=== PATIENT | male | born 1965 | race Caucasian/White ===

== ENCOUNTER 2017-01-12 11:35 | Observation (INO) | payer OTHER ==
[~2017-01-12] VITALS: Ht 185.4 cm; Wt 90.5 kg
[2017-01-12] MEDS ORDERED: IV NORMAL SALINE 1,000ML 1,000 ML IV SCH (11:40)
[2017-01-12] MEDS ORDERED: 0.9 % SODIUM CHLORIDE 10 ML DISP.SYRIN. IV PRN (11:45)
[2017-01-12] MEDS ORDERED: NITROGLYCERIN SUBLINGUAL 0.4 MG BOTTLE OF 25. SL PRN (11:45)
[2017-01-12 12:00] LABS: BASO % 0 % (0-3); EOS # 0.1 x10^3/uL (0.0-0.7); EOS % 3 % (0-3); HEMATOCRIT 41.4 % (39.0-53.0); HEMOGLOBIN 14.4 g/dL (13.0-17.5); LYMPH # 1.2 x10^3/uL (1.0-4.8); LYMPH % 22 % (24-48); MEAN CORPUSCULAR HEMOGLOBIN 32 pg (25-35); MEAN CORPUSCULAR HGB CONC 35 g/dL (31-37); MEAN CORPUSCULAR VOLUME 91 fL (79-100); MONO # 0.5 x10^3/uL (0.0-1.1); MONO % 8 % (0-9); NEUT # 3.7 x10^3uL (1.8-7.7); NEUT % 67 % (31-73); PLATELET COUNT 163 x10^3/uL (140-400); RED BLOOD COUNT 4.57 x10^6/uL (4.30-5.70); RED CELL DISTRIBUTION WIDTH 12.6 % (11.5-14.5); WHITE BLOOD COUNT 5.5 x10^3/uL (4.0-11.0)
--- NOTE | 2017-01-12 12:09 | RAD ---
CHEST PA LATERAL Technique: PA and lateral views of the chest were obtained. Clinical History: chest pain Comparison: None. Findings: The heart and pulmonary vasculature appear within normal limits. 7 mm nodule or granuloma identified in the right upper lobe of the lung.. The pleural margins are clear. Impression: 1. No acute chest process is seen. 2. Probable 7 mm nodule or granuloma identified in the right upper lobe of the lung. Follow-up nonemergent CT chest can be considered.
[2017-01-12] MEDS ORDERED: LORazepam 2 MG/ML VIAL IV ONE (12:15)
[2017-01-12] MEDS: HYDROmorphone PF 1 MG/ML DISP.SYRIN IV/SQ PRN ×2 (12:17→13:40)
--- NOTE | 2017-01-12 12:25 | PHYS DOC ---
Past History Past Medical History: Anxiety, High Cholesterol, Hyperthyroid Additional Past Surgical Histo: prior coronary catheterization in 2002 Smoking: Non-smoker Drug Use: None Adult General Chief Complaint Chief Complaint: CHEST PAIN HPI HPI Patient is a pleasant 51-year-old male with a history of question hypertension and hypercholesterolemia who is actually undergone catheterization in 2002 for the presentation of chest pain at [facility]. Although he did not have an AR at the time today's symptoms are markedly different. Today's chest pain began about 3 hours prior to arrival while at work. 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 He does not do any heavy lifting or exercise. He admits to chest pain is a pressure underneath his left chest with some radiation to the left arm. It is episodic and now completely resolved. Patient was mildly anxious with the symptoms but denied any vomiting or diarrhea or lightheadedness. He has some slight nausea with the symptoms but no shortness of breath. He denies any travel outside the country, he denies any other PE risk factors, denies any night sweats, weight loss fevers chills or URI symptoms. He does admit that he is gaining weight recently. He also admits that he does not exercise much. Review of Systems Review of Systems Constitutional: Denies fever or chills [] Eyes: Denies change in visual acuity, redness, or eye pain [] HENT: Denies nasal congestion or sore throat [] Respiratory: Denies cough or shortness of breath [] Cardiovascular: No additional information not addressed in HPI [] GI: Denies abdominal pain, vomiting bloody stools or diarrhea. But he has had some nausea. : Denies dysuria or hematuria [] Musculoskeletal: Denies back pain or joint pain [] Integument: Denies rash or skin lesions [] Neurologic: Denies headache, focal weakness or sensory changes he has felt little lightheaded and dizzy with the symptoms periodically.[] Endocrine: Denies polyuria or polydipsia [] Current Medications Current Medications Current Medications Medications (Trade) Dose Ordered Sig/Cleo Start Time Stop Time Status Last Admin Dose Admin Hydromorphone HCl (Dilaudid) 1 mg PRN Q15MIN PRN 01/12/17 11:45 01/13/17 11:44 Lorazepam (Ativan) 1 mg 1X ONCE 01/12/17 12:15 01/12/17 12:16 DC Nitroglycerin (Nitrostat) 0.4 mg PRN Q5MIN PRN 01/12/17 11:45 01/13/17 11:44 Sodium Chloride (Normal Saline Flush) 10 ml QSHIFT PRN 01/12/17 11:45 Allergies Allergies Allergies Coded Allergies Type Severity Reaction Last Updated Verified No Known Drug Allergies 01/12/17 No Physical Exam Physical Exam Patient's vital signs recorded on the chart demonstrate hypertension Constitutional: Well developed, well nourished, no acute distress, non-toxic appearance. He is mildly anxious but nondiaphoretic[] HENT: Normocephalic, atraumatic, bilateral external ears normal, oropharynx moist, no oral exudates, nose normal. [] Eyes: PERRLA, EOMI, conjunctiva normal, no discharge. [] Neck: Normal range of motion, no tenderness, supple, no stridor. [] Cardiovascular:Heart rate regular rhythm, no murmur no chest wall tenderness to palpation Lungs & Thorax: Bilateral breath sounds clear to auscultation no wheezes rhonchi rales or crackles Abdomen: Bowel sounds normal, soft, no tenderness, no masses, no pulsatile masses. [] Skin: Warm, dry, no erythema, no rash. [] Extremities: No tenderness, no cyanosis, no clubbing, ROM intact, no edema. No Homans sign [] Neurologic: Alert and oriented X 3, normal motor function, normal sensory function, no focal deficits noted. [] Psychologic: Patient has normal judgment mildly anxious but appropriate. [] Current Patient Data Lab Results Laboratory Tests Test 01/12/17 11:45 01/12/17 11:50 White Blood Count 5.5 x10^3/uL (4.0-11.0) Red Blood Count 4.57 x10^6/uL (4.30-5.70) Hemoglobin 14.4 g/dL (13.0-17.5) Hematocrit 41.4 % (39.0-53.0) Mean Corpuscular Volume 91 fL (79-100) Mean Corpuscular Hemoglobin 32 pg (25-35) Mean Corpuscular Hemoglobin Concent 35 g/dL (31-37) Red Cell Distribution Width 12.6 % (11.5-14.5) Platelet Count 163 x10^3/uL (140-400) Neutrophils (%) (Auto) 67 % (31-73) Lymphocytes (%) (Auto) 22 % (24-48) L Monocytes (%) (Auto) 8 % (0-9) Eosinophils (%) (Auto) 3 % (0-3) Basophils (%) (Auto) 0 % (0-3) Neutrophils # (Auto) 3.7 x10^3uL (1.8-7.7) Lymphocytes # (Auto) 1.2 x10^3/uL (1.0-4.8) Monocytes # (Auto) 0.5 x10^3/uL (0.0-1.1) Eosinophils # (Auto) 0.1 x10^3/uL (0.0-0.7) Basophils # (Auto) 0.0 x10^3/uL (0.0-0.2) Sodium Level 137 mmol/L (136-145) Potassium Level 4.1 mmol/L (3.5-5.1) Chloride Level 102 mmol/L (98-107) Carbon Dioxide Level 27 mmol/L (21-32) Anion Gap 8 (6-14) Blood Urea Nitrogen 16 mg/dL (8-26) Creatinine 0.9 mg/dL (0.7-1.3) Estimated GFR (Cockcroft-Gault) 89.7 BUN/Creatinine Ratio 18 (6-20) Glucose Level 108 mg/dL (70-99) H Calcium Level 9.0 mg/dL (8.5-10.1) Magnesium Level 2.0 mg/dL (1.8-2.4) Total Bilirubin 0.5 mg/dL (0.2-1.0) Aspartate Amino Transferase (AST) 18 U/L (15-37) Alanine Aminotransferase (ALT) 35 U/L (16-63) Alkaline Phosphatase 55 U/L (46-116) Creatine Kinase 91 U/L (39-308) Creatine Kinase MB (Mass) 0.5 ng/mL (0.0-3.6) Creatine Kinase MB Relative Index 0.5 % (0-4) Troponin I Quantitative < 0.017 ng/mL (0-0.055) UR-Rds-Z-Type Natriuretic Peptide 33 pg/mL (0-124) Total Protein 7.5 g/dL (6.4-8.2) Albumin 4.1 g/dL (3.4-5.0) Albumin/Globulin Ratio 1.2 (1.0-1.7) Lipase 151 U/L (73-393) Urine Collection Type Unknown Urine Color Yellow Urine Clarity Clear Urine pH 7.0 Urine Specific [place] 1.015 Urine Protein Neg (NEG-TRACE) Urine Glucose (UA) Neg mg/dL (NEG) Urine Ketones (Stick) Neg mg/dL (NEG) Urine Blood Neg (NEG) Urine Nitrite Neg (NEG) Urine Bilirubin Neg (NEG) Urine Urobilinogen Dipstick 0.2 mg/dL (0.2 mg/dL) Urine Leukocyte Esterase Neg (NEG) Urine RBC 0 /HPF (0-2) Urine WBC 0 /HPF (0-4) Urine Squamous Epithelial Cells None /LPF Urine Bacteria 0 /HPF (0-FEW) Urine Opiates Screen Neg (NEG) Urine Methadone Screen Neg (NEG) Urine Barbiturates Neg (NEG) Urine Phencyclidine Screen Neg (NEG) Urine Amphetamine/Methamphetamine Neg (NEG) Urine Benzodiazepines Screen Neg (NEG) Urine Cocaine Screen Neg (NEG) Urine Cannabinoids Screen Neg (NEG) Urine Ethyl Alcohol Neg (NEG) Laboratory Tests Test 01/12/17 11:45 White Blood Count 5.5 x10^3/uL (4.0-11.0) Red Blood Count 4.57 x10^6/uL (4.30-5.70) Hemoglobin 14.4 g/dL (13.0-17.5) Hematocrit 41.4 % (39.0-53.0) Mean Corpuscular Volume 91 fL (79-100) Mean Corpuscular Hemoglobin 32 pg (25-35) Mean Corpuscular Hemoglobin Concent 35 g/dL (31-37) Red Cell Distribution Width 12.6 % (11.5-14.5) Platelet Count 163 x10^3/uL (140-400) Neutrophils (%) (Auto) 67 % (31-73) Lymphocytes (%) (Auto) 22 % (24-48) L Monocytes (%) (Auto) 8 % (0-9) Eosinophils (%) (Auto) 3 % (0-3) Basophils (%) (Auto) 0 % (0-3) Neutrophils # (Auto) 3.7 x10^3uL (1.8-7.7) Lymphocytes # (Auto) 1.2 x10^3/uL (1.0-4.8) Monocytes # (Auto) 0.5 x10^3/uL (0.0-1.1) Eosinophils # (Auto) 0.1 x10^3/uL (0.0-0.7) Basophils # (Auto) 0.0 x10^3/uL (0.0-0.2) EKG EKG []EKG demonstrates at 11:30 AM 01/12/2017 heart rate of 82 normal sinus rhythm with a significant left bundle-branch block and left axis deviation. MD interval is 184 which is normal QRS width is 138 which is consistent with a left bundle mass block and not new to this patient patient's QTc is 456 which is normal. EKG read by Dr. Rahman there is no evidence of acute AR based on Ab's criteria Radiology/Procedures Radiology/Procedures [] Course & Med Decision Making Course & Med Decision Making Pertinent Labs and Imaging studies reviewed. (See chart for details) Differential diagnosis for chest pain: Pericarditis, myocarditis, endocarditis, pneumothorax, pneumonia, aortic dissection, esophageal spasm, esophagitis, peptic ulcer disease, acute coronary syndrome, mediastinitis, Boerhaave syndrome , musculoskeletal chest wall pain, costochondritis, intercostal strain, rib fracture, pulmonary contusion, pneumonitis, pleural effusion, pericardial effusion, pericardial tamponode, and pleurisy. SGARBOSSA Criteria The three ECG criteria with an independent value in the diagnosis of acute infarction and the score for each were: ST segment elevation of 1 mm or more that is in the same direction (concordant) as the QRS complex in any lead `` score 5. ST segment depression of 1 mm or more in any lead from V1 to V3 `` score 3. ST segment elevation of 5 mm or more that is discordant with the QRS complex (ie , associated with a QS or rS complex) `` score 2. Therefore, a ratio (in absolute units) in any relevant lead of the amplitude of the ST elevation to the S wave amplitude exceeding 0.25 has been proposed as having greater accuracy than the original Sgarbossa criterion []BASed on (spot on prior EKGs according to patient's history patient is not having a STEMI at this time Patient is low to moderate risk based on his history and presentation. I have offered him admission at this time despite knowing that troponin is likely going to be negative is only 2-3 hours of symptoms prior to arrival.Differential diagnosis for chest pain: Pericarditis, myocarditis, endocarditis, pneumothorax, pneumonia, aortic dissection, esophageal spasm, esophagitis, peptic ulcer disease, acute coronary syndrome, mediastinitis, Boerhaave syndrome, musculoskeletal chest wall pain, costochondritis, intercostal strain, rib fracture, pulmonary contusion, pneumonitis, pleural effusion, pericardial effusion, pericardial tamponode, and pleurisy. Was considered upon arrival initial EKG is not concerning for STEMI at this time [employer] Professor note: Dr. Ngo [employer] Professor called at of the service internal medicine service called up initially at 12:20 pM Consult called back at Discussed the case I presented and they agreed with admission. Time of acceptance 12:23 PM BASED and patient's heart score is listed below hydrate him up for which is moderate which require him to have a and inpatient observation workup with cardiology evaluation. History: Highly suspicious 2 points moderately suspicious 1. slightly suspicious 0 point EKG: ST segment depression 2. nonspecific repolarization disturbance 1. normal 0 point Age: Greater than 65 2 points, 65-45 1., less than 45 years old 0 points Risk factors:> 3 risk factors 2 points, 1-2 risk factors one point, no risk factors 0 point Troponin: > 2 times normal 2 points, 1-2 times normal 1., normal limits 0 point Total score: Score % pts MACE/n MACE Policy 0-3 32% 1.9% 0.05% Discharge 4-6 51% 413/[id number] 13% 1.3% Observation Risk management 7-10 17% 518/[id number] 50% 2.8% Observation Treatment, CAG Dragon Disclaimer Dragon Disclaimer This chart was dictated in whole or in part using Voice Recognition software in a busy, high-work load, and often noisy Emergency Department environment. It may contain unintended and wholly unrecognized errors or omissions. Departure Departure: Impression: Primary Impression: Chest pain Disposition: ADMITTED INPATIENT Admitting Physician: Key Ngo Condition: GUARDED Referrals: PCP,SHAMA (PCP) RADHA RAHMAN MD Jan 12, 2017 12:25
[2017-01-12 12:27] LABS: ALBUMIN 4.1 g/dL (3.4-5.0); ALBUMIN/GLOBULIN RATIO 1.2 (1.0-1.7); CREATININE 0.9 mg/dL (0.7-1.3); GFR 89.7; POTASSIUM 4.1 mmol/L (3.5-5.1); TOTAL BILIRUBIN 0.5 mg/dL (0.2-1.0); TOTAL PROTEIN 7.5 g/dL (6.4-8.2)
[2017-01-12 12:29] LABS: AMPHETAMINE/METHAMPHETAMINE NEG (NEG); BARBITURATES NEG (NEG); BENZODIAZEPINES NEG (NEG); CANNABINOIDS NEG (NEG); COCAINE NEG (NEG); METHADONE NEG (NEG); OPIATES NEG (NEG); PHENCYCLIDINE NEG (NEG)
[2017-01-12 12:39] LABS: BACTERIA,URINE 0 /HPF (0-FEW); BILIRUBIN,URINE NEG (NEG); CLARITY,URINE CLEAR; COLOR,URINE YELLOW; GLUCOSE,URINE NEG (NEG); NITRITE,URINE NEG (NEG); RBC,URINE 0 /HPF (0-2); UROBILINOGEN,URINE 0.2 mg/dL (0.2 mg/dL); WBC,URINE 0 /HPF (0-4)
--- NOTE | 2017-01-12 12:43 | EKG ---
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
[2017-01-12 13:36] VITALS: BP 125/73
[2017-01-12] MEDS ORDERED: LISI10TA2 PO (14:31)
[2017-01-12] MEDS ORDERED: TEMA15CA6 PO (14:31)
[2017-01-12] MEDS ORDERED: ESOM40CA PO (14:31)
[2017-01-12 14:38] VITALS: BP 125/73
[2017-01-12] MEDS ORDERED: ALFU10TA23 PO (15:55)
[2017-01-12 18:29] VITALS: BP 137/78
[2017-01-12] MEDS ORDERED: TEMAZEPAM 15 MG CAPSULE PO SCH (21:00)
--- NOTE | 2017-01-12 22:18 | HP ---
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 He basically was sitting, does not do heavy lifting or exercise. He complained of chest pressure under his left sided chest with some radiation to his left arm. It is episodic comes and goes. Denied any nausea or vomiting. Denied any diaphoresis or shortness of breath. By the time, he came to the Emergency Room, he was given 2 nitroglycerin and 1 aspirin and his pain has subsided. By the time I saw him, he was chest pain free. PAST MEDICAL HISTORY: Significant for hypertension, hypercholesterolemia, benign prostatic hypertrophy and anxiety as well as gastroesophageal reflux disease. He is also known to have gastric ulcers before. PAST SURGICAL HISTORY: Significant for left heart catheterization in 2002, had back surgery in 2007 and esophagogastroduodenoscopy in 2010. ALLERGIES: He has no known drug allergies. MEDICATIONS: He is currently on following medications: He is on Nexium 40 mg once a day, lisinopril 10 mg once a day, and temazepam 15 mg at bedtime. FAMILY HISTORY: He has one brother and one sister younger, both healthy. His father is alive at the age of 73, is known to have diabetes and hypertension. He does not keep in touch with his mother, does not know any medical problems. SOCIAL HISTORY: He is , has 1 son, quit smoking in 2002, he smokes about 1 pack a day for 25 years. Prior to that, he drinks alcohol, mostly beer twice a week. Does not use any drugs. 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 REVIEW OF SYSTEMS: The patient denied any blurring of vision, cataract, glaucoma or macular degeneration. Denied any earache, tinnitus or sensorineural deafness. Denied any nosebleeds, stuffy nose or postnasal drip. Denied any sore throat, sore tongue, toothache, hoarseness of voice or difficulty swallowing. Denied any nausea, vomiting, diarrhea or constipation. Denied any hematemesis, melena or hematochezia. Denied any dysuria, frequency or hematuria. He did complain of chest pain, but denied any nausea or vomiting. Denied any diaphoresis. Denied any shortness of breath, denied any dizziness or lightheadedness. PHYSICAL EXAMINATION: GENERAL: On arrival to the Emergency Room, the patient looked well and was clearly in no apparent respiratory distress. No pallor, jaundice, cyanosis or thyromegaly. No jugular distension. No lower limb edema. VITAL SIGNS: His heart rate was 95, blood pressure 152/68, temperature was 98.2, respiratory rate was 18 and oxygen saturation was 100% on room air. HEAD, EYES, EARS, NOSE AND THROAT: Showed normocephalic, atraumatic. NECK: Supple. HEART: Showed normal first and second heart sounds. No gallop, rub or murmur. CHEST: Clear to auscultation. No crepitation or rhonchi. ABDOMEN: Distended, soft, nontender. NEUROLOGIC: He is awake, alert, responding appropriately. Cranial nerves intact. He moves extremities without difficulty, ambulates without assistance or assistive devices. LABORATORY DATA: While in the Emergency Room, he had lab work done, which included white cell count of 5500, hemoglobin 14, hematocrit 41, MCV 91 and platelet count of 163,000. The manual differential showed 67% polymorphs, 22% lymphocytes. His chemistry showed a serum sodium 137, potassium 4.1, chloride 102, bicarbonate 27, anion gap of 8, BUN 16, creatinine 0.9. Estimated GFR was 90 mL per minute. His glucose was 109. Calcium was 9, magnesium 2. Total bilirubin, AST, ALT, alkaline phosphatase were normal. His first set of cardiac enzymes showed troponin to be less than 0.017. Total protein 7.5, albumin was 4.1, lipase was 151. His urinalysis was essentially unremarkable and urine toxicology screen was negative. He has had a chest x-ray, which showed that the heart and pulmonary vasculature appeared within normal limits, 7 mm nodules or granuloma identified in the right upper lobe of the lung. The pleural margins are clear. He apparently had had an EKG, which showed that he has left bundle branch block that the finding is old. ASSESSMENT AND PLAN: The patient was admitted. We will do 2 more sets of cardiac enzyme, consult the Cardiology team and check his fasting lipid profile and decide on further management accordingly. We will continue with all his medication. LIVIA BRAN MD DR: Dinorah JOB#: [id number] / [id number]
[2017-01-12 23:17] VITALS: BP 134/71
[2017-01-13 05:32] VITALS: BP 138/77
[2017-01-13 06:36] LABS: BASO % 0 % (0-3); CALCIUM 8.7 mg/dL (8.5-10.1); CREATININE 0.9 mg/dL (0.7-1.3); EOS # 0.3 x10^3/uL (0.0-0.7); EOS % 4 % (0-3); HEMATOCRIT 41.4 % (39.0-53.0); HEMOGLOBIN 14.3 g/dL (13.0-17.5); LYMPH # 1.1 x10^3/uL (1.0-4.8); LYMPH % 18 % (24-48); MEAN CORPUSCULAR HEMOGLOBIN 31 pg (25-35); MEAN CORPUSCULAR HGB CONC 35 g/dL (31-37); MEAN CORPUSCULAR VOLUME 91 fL (79-100); MONO # 0.5 x10^3/uL (0.0-1.1); MONO % 7 % (0-9); NEUT # 4.3 x10^3uL (1.8-7.7); NEUT % 70 % (31-73); PLATELET COUNT 156 x10^3/uL (140-400); RED BLOOD COUNT 4.56 x10^6/uL (4.30-5.70); RED CELL DISTRIBUTION WIDTH 12.6 % (11.5-14.5); WHITE BLOOD COUNT 6.1 x10^3/uL (4.0-11.0)
[2017-01-13 06:37] LABS: GFR 89.7; POTASSIUM 4.4 mmol/L (3.5-5.1)
[2017-01-13] MEDS ORDERED: PANTOPRAZOLE 40 MG TABLET. PO SCH (07:30)
[2017-01-13] MEDS ORDERED: LISINOPRIL 10 MG TABLET PO SCH (09:00)
[2017-01-13 11:07] VITALS: BP 129/78
[2017-01-13] MEDS ORDERED: NITR0.4T SL (12:30)
[2017-01-13] MEDS ORDERED: ASPI-630 PO (12:31)
--- NOTE | 2017-01-13 13:24 | PDOC2 ---
KAMILA HAIRSTON TELEGRAPH REPEATER TECHNICIAN 01/13/17 1324: CONSULT Date of Admission DATE: 01/13/17 TIME: 13:20 Reason for Consult: Chest pain Referring Physician: Dr Ngo Problem List Problems Medical Problems: (1) Chest pain Status: Acute History of Present Illness This is a pleasant 51-year-old male who presented to the emergency room with chief complaint of chest discomfort. HE has a past medical history significant for hypertension, hyperlipidemia, gastric ulcer and gastroesophageal reflux disease. Yesterday while at work he began having pressure sensations in his chest at 1st they are very short lasting and did not seem to be triggered by any type of activity. The pain radiated at times down his left arm but he denies any associated shortness of breath, nausea, vomiting or diaphoresis. He had and upset patient and began to feel more stress and felt like this caused the pain to become more persistent and he became lightheaded. He had to sit down and felt chest pressure so they called the ambulance to bring him to the ER. In the ER he was given 2 nitro and 1 aspirin and the pain resolved. He has not had any further. He denies any recent change in function or Progressive dyspnea/ palpitations. In 2002 he had an episode of chest pain that required an ambulance to [facility] where he underwent a cardiac catheterization. HE did not require any intervention but does not remember the exact results of the test. He does exercise on inconsistent basis does not noticed any chest discomfort or changes. Past medical history significant for hypertension, hyperlipidemia, benign prostatic hypertrophy, as well as reflux disease and gastric ulcer. Past surgical history significant for heart left heart catheterization in 2002 that did not require intervention and back surgery in 2007 allergies he has no known drug allergies medications Nexium 40 mg daily lisinopril 10 mg daily and temazepam 15 mg at bedtime family history his father's medical history is significant for diabetes and hypertension he is living at age 73. He has 1 brother with a left bundle- branch block social history -he is and works at [employer]. He quit smoking in 2002, prior to that he smoked 1 pack of cigarettes a day for 25 years. He drinks alcohol occasionally and denies any drug use. Review of systems review of 10 organ systems is negative except for as in HPI physical examination GENERAL: On arrival to the Emergency Room, the patient looked well and was clearly in no apparent respiratory distress. No pallor, jaundice, cyanosis or thyromegaly. No jugular distension. No lower limb edema. HEAD, EYES, EARS, NOSE AND THROAT: Showed normocephalic, atraumatic. NECK: Supple. HEART: Showed normal first and second heart sounds. No gallop, rub or murmur. CHEST: Clear to auscultation. No crepitation or rhonchi. ABDOMEN: Distended, soft, nontender. NEUROLOGIC: He is awake, alert, responding appropriately. Cranial nerves intact. He moves extremities without difficulty, ambulates without assistance or assistive devices. Laboratory data -he has had 3 sets of negative cardiac enzymes. EKG shows sinus rhythm with left bundle-branch block, he reports that this is an old finding chest x-ray showed normal heart and pulmonary vascular 7 mm nodule or granuloma identified in the right upper lobe of the lung impression and plan Chest pain CO has been ruled out. His EKG shows left bundle which is his baseline. We will plan to discharge home and do an outpatient echo and nuclear stress test. Abnormal EKG Hypertension continue lisinopril gastroesophageal reflux disease with prior gastric ulcer -if his stress test is negative would plan to send to GI for follow-up. Current Medications Current Medications Lorazepam (Ativan) 1 mg 1X ONCE IV Last administered on 01/12/17 12:16; Start 01/12/17 at 12:15; Stop 01/12/17 at 12:16; Status DC Nitroglycerin (Nitrostat) 0.4 mg PRN Q5MIN PRN SL CP RATING > 1/10 Last administered on 01/12/17 12:22; Start 01/12/17 at 11:45; Stop 01/13/17 at 11:44 ; Status DC Hydromorphone HCl (Dilaudid) 1 mg PRN Q15MIN PRN IV/SQ PAIN GREATER THAN 3/10 Last administered on 01/12/17 13:40; Start 01/12/17 at 11:45; Stop 01/13/17 at 11:44; Status DC Sodium Chloride 1,000 ml @ 1,000 mls/hr Q1H IV Last administered on 01/12/17 12:20; Start 01/12/17 at 11:40; Stop 01/12/17 at 12:39; Status DC Sodium Chloride (Normal Saline Flush) 10 ml QSHIFT PRN IV AFTER MEDS AND BLOOD DRAWS Last administered on 01/12/17 12:23; Start 01/12/17 at 11:45; Stop at 12:45; Status DC Lisinopril (Prinivil) 10 mg DAILY PO Last administered on 01/13/17 07:39; Start 01/13/17 at 09:00; Stop 01/13/17 at 12:45; Status DC Temazepam (Restoril) 15 mg QHS PO Last administered on 01/12/17 20:31; Start 01/12/17 at 21:00; Stop 01/13/17 at 12:45; Status DC Pantoprazole Sodium (Protonix) 40 mg DAILYAC PO Last administered on 01/13/17 07:39; Start 01/13/17 at 07:30; Stop 01/13/17 at 12:45; Status DC Active Scripts Active Aspirin 81 Mg Tab.chew 81 Mg PO DAILY Nitrostat (Nitroglycerin) 0.4 Mg Tab.subl 1 Tab SL UD Reported Uroxatral (Alfuzosin HCl) 10 Mg Tab.er.24h 10 Mg PO DAILY LAST DOSE GIVEN: DATE: TODAY TIME: AM NEXT DOSE DUE: DATE: TOMORROW TIME: AM Lisinopril 10 Mg Tablet 1 Tab PO DAILY LAST DOSE GIVEN: DATE: TODAY TIME: AM NEXT DOSE DUE: DATE: TOMORROW TIME: AM Nexium Capsule (Esomeprazole Magnesium) 40 Mg Capsule.dr 40 Mg PO DAILYAC LAST DOSE GIVEN: DATE: TODAY TIME: BEFORE BREAKFAST NEXT DOSE DUE: DATE: TOMORROW TIME: BEFORE BREAKFAST Restoril (Temazepam) 15 Mg Capsule 1 Cap PO QHS NEXT DOSE DUE: DATE: RESUME TONITE TIME: WHEN NEEDED Allergies: Coded Allergies: No Known Drug Allergies (Unverified , 01/12/17) VITALS Vital Signs Date Time Temp Pulse Resp B/P (MAP) Pulse Ox O2 Delivery O2 Flow Rate FiO2 01/13/17 11:07 97.9 76 14 129/78 (95) 96 Room Air Labs Laboratory Tests Test 01/12/17 11:45 01/12/17 11:50 01/12/17 13:30 01/12/17 18:15 White Blood Count 5.5 x10^3/uL (4.0-11.0) Red Blood Count 4.57 x10^6/uL (4.30-5.70) Hemoglobin 14.4 g/dL (13.0-17.5) Hematocrit 41.4 % (39.0-53.0) Mean Corpuscular Volume 91 fL (79-100) Mean Corpuscular Hemoglobin 32 pg (25-35) Mean Corpuscular Hemoglobin Concent 35 g/dL (31-37) Red Cell Distribution Width 12.6 % (11.5-14.5) Platelet Count 163 x10^3/uL (140-400) Neutrophils (%) (Auto) 67 % (31-73) Lymphocytes (%) (Auto) 22 % (24-48) Monocytes (%) (Auto) 8 % (0-9) Eosinophils (%) (Auto) 3 % (0-3) Basophils (%) (Auto) 0 % (0-3) Neutrophils # (Auto) 3.7 x10^3uL (1.8-7.7) Lymphocytes # (Auto) 1.2 x10^3/uL (1.0-4.8) Monocytes # (Auto) 0.5 x10^3/uL (0.0-1.1) Eosinophils # (Auto) 0.1 x10^3/uL (0.0-0.7) Basophils # (Auto) 0.0 x10^3/uL (0.0-0.2) Sodium Level 137 mmol/L (136-145) Potassium Level 4.1 mmol/L (3.5-5.1) Chloride Level 102 mmol/L (98-107) Carbon Dioxide Level 27 mmol/L (21-32) Anion Gap 8 (6-14) Blood Urea Nitrogen 16 mg/dL (8-26) Creatinine 0.9 mg/dL (0.7-1.3) Estimated GFR (Cockcroft-Gault) 89.7 BUN/Creatinine Ratio 18 (6-20) Glucose Level 108 mg/dL (70-99) Calcium Level 9.0 mg/dL (8.5-10.1) Magnesium Level 2.0 mg/dL (1.8-2.4) Total Bilirubin 0.5 mg/dL (0.2-1.0) Aspartate Amino Transf (AST/SGOT) 18 U/L (15-37) Alanine Aminotransferase (ALT/SGPT) 35 U/L (16-63) Alkaline Phosphatase 55 U/L (46-116) Creatine Kinase 91 U/L (39-308) Creatine Kinase MB (Mass) 0.5 ng/mL (0.0-3.6) Creatine Kinase MB Relative Index 0.5 % (0-4) Troponin I Quantitative < 0.017 ng/mL (0-0.055) < 0.017 ng/mL (0-0.055) UO-Fxa-A-Type Natriuretic Peptide 33 pg/mL (0-124) Total Protein 7.5 g/dL (6.4-8.2) Albumin 4.1 g/dL (3.4-5.0) Albumin/Globulin Ratio 1.2 (1.0-1.7) Lipase 151 U/L (73-393) Urine Collection Type Unknown Urine Color Yellow Urine Clarity Clear Urine pH 7.0 Urine Specific [place] 1.015 Urine Protein Neg (NEG-TRACE) Urine Glucose (UA) Neg mg/dL (NEG) Urine Ketones (Stick) Neg mg/dL (NEG) Urine Blood Neg (NEG) Urine Nitrite Neg (NEG) Urine Bilirubin Neg (NEG) Urine Urobilinogen Dipstick 0.2 mg/dL (0.2 mg/dL) Urine Leukocyte Esterase Neg (NEG) Urine RBC 0 /HPF (0-2) Urine WBC 0 /HPF (0-4) Urine Squamous Epithelial Cells None /LPF Urine Bacteria 0 /HPF (0-FEW) Urine Opiates Screen Neg (NEG) Urine Methadone Screen Neg (NEG) Urine Barbiturates Neg (NEG) Urine Phencyclidine Screen Neg (NEG) Urine Amphetamine/Methamphetamine Neg (NEG) Urine Benzodiazepines Screen Neg (NEG) Urine Cocaine Screen Neg (NEG) Urine Cannabinoids Screen Neg (NEG) Urine Ethyl Alcohol Neg (NEG) Nasal Screen MRSA (PCR) Negative (Negative) Test 01/12/17 23:40 01/13/17 05:41 Troponin I Quantitative < 0.017 ng/mL (0-0.055) White Blood Count 6.1 x10^3/uL (4.0-11.0) Red Blood Count 4.56 x10^6/uL (4.30-5.70) Hemoglobin 14.3 g/dL (13.0-17.5) Hematocrit 41.4 % (39.0-53.0) Mean Corpuscular Volume 91 fL (79-100) Mean Corpuscular Hemoglobin 31 pg (25-35) Mean Corpuscular Hemoglobin Concent 35 g/dL (31-37) Red Cell Distribution Width 12.6 % (11.5-14.5) Platelet Count 156 x10^3/uL (140-400) Neutrophils (%) (Auto) 70 % (31-73) Lymphocytes (%) (Auto) 18 % (24-48) Monocytes (%) (Auto) 7 % (0-9) Eosinophils (%) (Auto) 4 % (0-3) Basophils (%) (Auto) 0 % (0-3) Neutrophils # (Auto) 4.3 x10^3uL (1.8-7.7) Lymphocytes # (Auto) 1.1 x10^3/uL (1.0-4.8) Monocytes # (Auto) 0.5 x10^3/uL (0.0-1.1) Eosinophils # (Auto) 0.3 x10^3/uL (0.0-0.7) Basophils # (Auto) 0.0 x10^3/uL (0.0-0.2) Sodium Level 140 mmol/L (136-145) Potassium Level 4.4 mmol/L (3.5-5.1) Chloride Level 105 mmol/L (98-107) Carbon Dioxide Level 27 mmol/L (21-32) Anion Gap 8 (6-14) Blood Urea Nitrogen 15 mg/dL (8-26) Creatinine 0.9 mg/dL (0.7-1.3) Estimated GFR (Cockcroft-Gault) 89.7 Glucose Level 103 mg/dL (70-99) Calcium Level 8.7 mg/dL (8.5-10.1) AMAN SANDOVAL Jr, MD 01/14/17 1106: CONSULT Allergies: Coded Allergies: No Known Drug Allergies (Unverified , 01/12/17) Assessment/Plan The patient was seen by Kamila Hairston APRN and I have reviewed her findings and plan and agree with above. Due to staffing constraints, we did not have an attending available on this day to see the patient. Problems: KAMILA HAIRSTON APRN Jan 13, 2017 13:24 AMAN SANDOVAL Jr, MD Jan 14, 2017 11:06
--- NOTE | 2017-01-13 23:41 | DS ---
DATE OF DISCHARGE: 01/13/2017 HISTORY OF PRESENT ILLNESS: Mr. Chatterjee was admitted with chest pain that rate about 7/10, started while sitting in his desk at the [facility]. The pain continued for about 3 hours on and off. He denied any nausea or vomiting. Denied any diaphoresis. He was given 2 nitroglycerins and 1 aspirin and his pain has subsided. He has had 3 sets of cardiac enzymes that were negative with troponin to be less than 0.017 x 3. He was seen by the Cardiology team and they recommended that the patient can be discharged home and he would be contacted for arrangement of nuclear stress test and echocardiogram to be done as an outpatient. PHYSICAL EXAMINATION: GENERAL: When I saw him this morning, he was sitting slightly propped up in bed, in no apparent respiratory distress, pale, but no jaundice, cyanosis, or thyromegaly. No jugular venous distention. No limb edema. VITAL SIGNS: His heart rate was 76, blood pressure 129/78, temperature was 97.9, respiratory rate was 14, and oxygen saturation was 96% on room air. The rest of clinical examination is unremarkable. LABORATORY DATA: Showed a white cell count of 6100, hemoglobin 14, hematocrit 41, MCV 91, and platelet count 256,000 with normal manual differential. His chemistry showed a serum sodium 140, potassium 4.4, chloride 105, bicarbonate 27, anion gap of 8, BUN 15, creatinine 0.9, estimated GFR was 90 mL per minute, glucose 103, calcium was 8.7. He had 3 sets of cardiac enzymes that were negative. His EKG showed left bundle branch block that is old. FINAL DISCHARGE DIAGNOSES: Chest pain, somewhat atypical, myocardial infarction ruled out, hypertension, hyperlipidemia, gastroesophageal reflux disease, and benign prostatic hypertrophy. DISCHARGE MEDICATIONS: The patient will be discharged home to continue lisinopril 10 mg once a day, Protonix 40 mg once a day, temazepam ____ mg once a day. He is also on Uroxatral 10 mg once a day for benign prostatic hypertrophy. He was also given a prescription for nitroglycerin 0.4 mg sublingually every 5 minutes x 3 as needed, aspirin 81 mg once a day. LIVIA BRAN MD DR: VLADIMIR/eric JOB#: [id number] / [id number]
== END 2017-01-13 12:35 | disposition home or self-care (01) ==
LOC: ER 11:35 → ICU 12:30
PROVIDERS: ADMIT Internal Medicine; ATTEND Internal Medicine
DX: R07.89 Other chest pain (principal); I10 Essential (primary) hypertension; E78.5 Hyperlipidemia, unspecified; K21.9 Gastro-esophageal reflux disease without esophagitis; N40.0 Benign prostatic hyperplasia without lower urinary tract symptoms; E78.00 Pure hypercholesterolemia, unspecified; F41.9 Anxiety disorder, unspecified; Z79.899 Other long term (current) drug therapy; Z87.11 Personal history of peptic ulcer disease; Z87.891 Personal history of nicotine dependence; Z82.49 Family history of ischemic heart disease and other diseases of the circulatory system; Z83.3 Family history of diabetes mellitus
CPT/HCPCS: 36415; 71020; 80048; 80053; 80061; 80307; 81001; 82553; 83690; 83735; 83880; 84443; 84484; 85025; 87641; 93005; 96361; 96374; 96375; 96376; 99285; G0378; J1170; J2060; G0379; G0479; J7030